=== PATIENT | male | born 1955 | race Caucasian/White ===

== ENCOUNTER 2019-07-14 11:54 | Emergency (ER) | payer BC ==
[2019-07-14] MEDS ORDERED: Adacel (T-DAP) 0.5 ML SYRINGE ONE (12:02)
[2019-07-14] MEDS ORDERED: Cephalexin 250 MG CAP ONE (12:07)
[2019-07-14] MEDS ORDERED: HYDROcodone/Acetaminophen 10/325 mg Tablet ONE (12:17)
[2019-07-14] MEDS ORDERED: Ibuprofen 800 MG TAB ONE (12:17)
[2019-07-14] MEDS ORDERED: Bacitracin 1 PK ONE (12:50)
--- NOTE | 2019-07-14 13:03 | RAD ---
LEFT INDEX FINGER 3 VIEWS: HISTORY: Injury. No evidence of fracture or dislocation. No osseous abnormality identified. IMPRESSION: No acute finding. POS: OFF
== END 2019-07-14 13:04 | disposition home or self-care (01) ==
LOC: BURERS 11:54
DX: S61.311A Laceration without foreign body of left index finger with damage to nail, initial encounter (principal); F41.9 Anxiety disorder, unspecified; E78.5 Hyperlipidemia, unspecified; E78.1 Pure hyperglyceridemia; E78.00 Pure hypercholesterolemia, unspecified; Z79.899 Other long term (current) drug therapy; W45.8XXA Other foreign body or object entering through skin, initial encounter
CPT/HCPCS: 90471; 90715

== ENCOUNTER 2022-11-26 13:07 | Emergency (ER) | payer MEDICARE | END 2022-11-26 13:33 | disposition home or self-care (01) | LOC: BURERS 13:07 | DX: U07.1 COVID-19 (principal); E78.2 Mixed hyperlipidemia | CPT/HCPCS: 99282 ==

== ENCOUNTER 2023-09-01 09:26 | Emergency (ER) | payer MEDICARE ==
[2023-09-01 10:35] LABS: SARS-CoV-2 NAA Rapid Test Not Detected (NotDetected)
== END 2023-09-01 10:53 | disposition home or self-care (01) ==
LOC: BURERS 09:26
DX: J10.1 Influenza due to other identified influenza virus with other respiratory manifestations (principal); E78.2 Mixed hyperlipidemia
CPT/HCPCS: 71046